=== PATIENT | male | born 1960 | race Caucasian/White ===

== ENCOUNTER 2020-02-03 01:11 | Observation (INO) ==
[2020-02-03] MEDS ORDERED: 0.9 % Sodium Chloride 1,000 ML IVC ONE (01:36)
[2020-02-03 01:54] LABS: Basophils % 0.3 %; Eosinophils % 0.4 %; Hematocrit 39.5 % (37.5-50.1); Hemoglobin 13.3 g/dL (12.9-16.9); Immature Granulocytes % 0.5 % (0-4); Lymphocytes # 1.2 K/mcL (0.6-4.6); Lymphocytes % 12.8 %; Mean Corpuscular HGB Conc 33.7 g/dL (31.6-35.5); Mean Corpuscular Hemoglobin 29.3 pg (28.0-33.3); Mean Platelet Volume 10.7 fL (9.4-12.4); Monocytes # 0.6 K/mcL (0.0-1.3); Monocytes % 6.6 %; Neutrophils # 7.3 K/mcL (1.6-8.9); Platelet Count 226 K/mcL (140-400); Red Blood Count 4.54 M/mcL (4.19-5.50); Red Cell Distribution Width 12.6 % (11.5-14.5); Segmented Neutrophils % 79.4 %; White Blood Count 9.2 K/mcL (4.3-11.1)
[2020-02-03 02:05] LABS: INR 1.1; Prothrombin Time 13.2 Seconds (9.4-12.1)
[2020-02-03 02:07] LABS: Activated Partial Thrombo Time 23.9 Seconds (26.0-36.0)
[2020-02-03 02:16] LABS: Alanine Aminotransferase 18 Units/L (7-52); Albumin 4.1 g/dL (3.5-5.7); Albumin/Globulin Ratio 1.5 (1.1-2.2); Alkaline Phosphatase 52 Units/L (34-104); Aspartate Amino Transferase 16 Units/L (13-39); BUN/Creatinine Ratio 11 (6-26); Bilirubin,Total 0.6 mg/dL (0.3-1.0); Blood Urea Nitrogen 10 mg/dL (6-20); Calcium 8.8 mg/dL (8.6-10.3); Carbon Dioxide 30 mEq/L (23-29); Chloride 101 mEq/L (98-107); Globulin 2.7 g/dL (2.4-3.5); Glucose 208 mg/dL (70-105); Osmolality,Calculated 295 (280-300); Potassium 3.1 mEq/L (3.5-5.1); Sodium 140 mEq/L (136-145); Total Protein 6.8 g/dL (6.4-8.9); eGFR For African Americans > 60 (> 60); eGFR For Non-African Americans > 60 (> 60)
[2020-02-03 02:17] LABS: Troponin I < 0.03 ng/mL (< 0.04)
[2020-02-03 03:16] LABS: Adenovirus Not Detected (Not Detect); Bordetella Pertussis Not Detected (Not Detect); Chlamydophila pneumoniae Not Detected (Not Detect); Coronavirus 229E Not Detected (Not Detect); Coronavirus HKU1 Not Detected (Not Detect); Coronavirus NL63 Not Detected (Not Detect); Coronavirus OC43 Not Detected (Not Detect); Human Metapneumovirus Not Detected (Not Detect); Human Rhinovirus/Enterovirus Not Detected (Not Detect); Influenza A Subtype 2009 H1 Not Detected (Not Detect); Influenza B Not Detected (Not Detect); Mycoplasma pneumoniae Not Detected (Not Detect); Parainfluenza Virus 1 Not Detected (Not Detect); Parainfluenza Virus 2 Not Detected (Not Detect); Parainfluenza Virus 3 Not Detected (Not Detect); Parainfluenza Virus 4 Not Detected (Not Detect); Respiratory Syncytial Virus Not Detected (Not Detect); SARS-CoV-2 Not Detected (Not Detect)
[2020-02-03] MEDS ORDERED: *HR* LORazepam 2 MG/ML VIAL IVP ONE (03:39)
[2020-02-03] MEDS ORDERED: levETIRAcetam 1,000 MG in 0.9 % Sodium Chloride 100 ML IVPB ONE (04:01)
[2020-02-03] MEDS ORDERED: Acetaminophen 325 MG TABLET PO PRN (04:25)
[2020-02-03] MEDS ORDERED: Ondansetron ODT 4 MG TAB.RAPDIS SL PRN (04:25)
[2020-02-03] MEDS ORDERED: Naloxone 0.4 MG/ML INJ IVP PRN (04:25)
[2020-02-03] MEDS ORDERED: *HR* LORazepam 1 MG TABLET PO PRN (04:29)
[2020-02-03] MEDS ORDERED: D5% in Water 1,000 ML IVC PRN (04:56)
[2020-02-03] MEDS ORDERED: *HR* Dextrose 50 % in Water (Vial) 50 ML VIAL IVP PRN (04:56)
[2020-02-03] MEDS ORDERED: Dextrose Gel 15 GM/37.5 ML TUBE PO PRN ×2 (04:56)
[2020-02-03] MEDS: 0.9 % Sodium Chloride 1,000 ML IVC SCH ×2 (04:58→17:27)
[2020-02-03 05:54] LABS: Creatine Kinase 547 Units/L (30-223); Ethanol < 10 mg/dL (Less than 10)
[2020-02-03] MEDS ORDERED: Ondansetron 4 MG/2 ML VIAL IVP PRN (06:00)
[2020-02-03 06:25] LABS: Bacteria,Urine Few per hpf (None-Few); Bilirubin,Urine Negative (Negative); Blood,Urine Trace (Negative); Clarity,Urine Clear (Clear); Color,Urine Colorless (Yellow); Glucose,Urine (UA) 100 mg/dL (Normal); Ketones,Urine Trace mg/dL (Negative); Leukocyte Esterase,Urine Negative (Negative); Mucus,Urine Few per lpf (None-Few); Nitrite,Urine Negative (Negative); PH,Urine 6.5 pH Units (5.0-8.0); Protein,Urine Trace mg/dL (Neg-Trace); Specific Gravity,Urine 1.012 (1.010-1.025); Urobilinogen,Urine Normal (Normal); WBC,Urine 0-3 per hpf (0-3)
[2020-02-03 06:26] LABS: Amphetamine Screen,Urine Negative ng/mL (Cutoff=1000); Barbiturate Screen,Urine Negative ng/mL (Cutoff=200)
[2020-02-03 06:27] LABS: Benzodiazepines Screen,Urine Negative ng/mL (Cutoff=300); Cannabinoid Screen,Urine Positive ng/mL (Cutoff = 50); Cocaine Screen,Urine Negative ng/mL (Cutoff= 300); Opiate Screen,Urine Negative ng/mL (Cutoff=300); Phencyclidine Screen,Urine Negative ng/mL (Cutoff=25)
[2020-02-03] MEDS ORDERED: Acetaminophen 650 MG RECTAL SUPP RC PRN (08:21)
[2020-02-03 08:40] LABS: Estimated Average Glucose 286 mg/dl; Hemoglobin A1C 11.6 %
[2020-02-03] MEDS: Insulin LISPRO 300 UNITS/3 ML VIAL SQ SCH ×3 (08:47→17:28)
[2020-02-03] MEDS: *HR* Metoprolol 5 MG/5 ML VIAL IVP SCH ×2 (08:48→17:27)
[2020-02-03] MEDS ORDERED: Acyclovir 700 MG in D5% in Water 250 ML IVPB SCH (09:00)
[2020-02-03 09:35] LABS: Folate 15.7 ng/mL (3.0-16.0)
[2020-02-03 13:27] LABS: Red Blood Cell,CSF < 2000 RBC/mcL
[2020-02-03 14:01] LABS: Glucose,CSF 108 mg/dL (40-70); Total Protein,CSF 63 mg/dL (15-45)
[2020-02-03 14:48] LABS: Appearance,CSF Clear (Clear)
[2020-02-03] MEDS ORDERED: Insulin LISPRO 300 UNITS/3 ML VIAL SQ SCH (21:00)
[2020-02-04] MEDS: *HR* Metoprolol 5 MG/5 ML VIAL IVP SCH ×2 (00:45→09:04)
[2020-02-04 06:25] LABS: Hematocrit 38.5 % (37.5-50.1); Hemoglobin 12.6 g/dL (12.9-16.9); Mean Corpuscular HGB Conc 32.7 g/dL (31.6-35.5); Mean Corpuscular Hemoglobin 29.1 pg (28.0-33.3); Mean Corpuscular Volume 88.9 fL (83.0-100.0); Mean Platelet Volume 10.4 fL (9.4-12.4); Platelet Count 199 K/mcL (140-400); Red Blood Count 4.33 M/mcL (4.19-5.50); Red Cell Distribution Width 12.7 % (11.5-14.5); White Blood Count 7.9 K/mcL (4.3-11.1)
[2020-02-04 07:52] VITALS: BP 139/78
[2020-02-04] MEDS: Insulin LISPRO 300 UNITS/3 ML VIAL SQ SCH (08:08)
[2020-02-04 08:34] LABS: BUN/Creatinine Ratio 13 (6-26); Blood Urea Nitrogen 13 mg/dL (6-20); Calcium 8.6 mg/dL (8.6-10.3); Carbon Dioxide 26 mEq/L (23-29); Chloride 106 mEq/L (98-107); Glucose 139 mg/dL (70-105); Osmolality,Calculated 296 (280-300); Phosphorous 3.7 mg/dL (2.7-4.5); Sodium 142 mEq/L (136-145); eGFR For African Americans > 60 (> 60); eGFR For Non-African Americans > 60 (> 60)
[2020-02-04] MEDS ORDERED: lisinopriL 20 MG TABLET PO SCH (09:00)
[2020-02-04] MEDS ORDERED: Acetaminophen 325 MG TABLET PO PRN (10:04)
[2020-02-05 16:32] LABS: HSV 2 Glycoprotein G IgG 0.87 IV (<=0.89)
[2020-02-06 13:08] LABS: HSV 2 Glycoprotein G IgG CSF 0.04 IV (<=0.89)
== END 2020-02-04 11:41 | disposition home or self-care (01) ==
LOC: CDU 01:11 → EMEROOARM 01:11 → SUATTDRO 04:08 → CDU 04:58 → 2ANU 05:18
PROVIDERS: ADMIT Internal Medicine; ATTEND Family Medicine

== ENCOUNTER 2020-04-25 12:19 | Observation (INO) ==
[2020-04-25] MEDS ORDERED: *HR* LORazepam 2 MG/ML VIAL ONE ×3 (12:42→15:20)
[2020-04-25] MEDS ORDERED: levETIRAcetam 1,000 MG in 0.9 % Sodium Chloride 100 ML IVPB ONE (12:46)
[2020-04-25] MEDS ORDERED: 0.9 % Sodium Chloride 1,000 ML IVC ONE (12:47)
[2020-04-25 13:02] LABS: Bilirubin,Urine Negative (Negative); Blood,Urine Small (Negative); Clarity,Urine Clear (Clear); Color,Urine Colorless (Yellow); Glucose,Urine (UA) >=1000 mg/dL (Normal); Ketones,Urine Trace mg/dL (Negative); Leukocyte Esterase,Urine Negative (Negative); Mucus,Urine Few per lpf (None-Few); Nitrite,Urine Negative (Negative); PH,Urine 5.5 pH Units (5.0-8.0); Protein,Urine 30 mg/dL (Neg-Trace); Specific Gravity,Urine 1.011 (1.010-1.025); Squamous Epithelial Cell,Urine Few per hpf (None-Few); Urobilinogen,Urine Normal (Normal); WBC,Urine 0-3 per hpf (0-3)
[2020-04-25 13:03] LABS: Basophils % 0.4 %; Eosinophils # 0.2 K/mcL (0.0-0.6); Eosinophils % 2.3 %; Hematocrit 43.2 % (37.5-50.1); Hemoglobin 14.8 g/dL (12.9-16.9); Lymphocytes # 2.3 K/mcL (0.6-4.6); Lymphocytes % 28.7 %; Mean Corpuscular HGB Conc 34.3 g/dL (31.6-35.5); Mean Corpuscular Hemoglobin 30.6 pg (28.0-33.3); Mean Corpuscular Volume 89.3 fL (83.0-100.0); Mean Platelet Volume 11.2 fL (9.4-12.4); Monocytes # 0.5 K/mcL (0.0-1.3); Monocytes % 5.7 %; Neutrophils # 4.9 K/mcL (1.6-8.9); Platelet Count 215 K/mcL (140-400); Red Blood Count 4.84 M/mcL (4.19-5.50); Segmented Neutrophils % 61.9 %; White Blood Count 7.9 K/mcL (4.3-11.1)
[2020-04-25] MEDS ORDERED: *HR* LORazepam 2 MG/ML VIAL IVP ONE ×2 (13:17)
[2020-04-25 13:33] LABS: Amphetamine Screen,Urine Negative ng/mL (Cutoff=1000); Barbiturate Screen,Urine Negative ng/mL (Cutoff=200); Benzodiazepines Screen,Urine Negative ng/mL (Cutoff=200); Cannabinoid Screen,Urine Positive ng/mL (Cutoff = 50); Cocaine Screen,Urine Negative ng/mL (Cutoff= 300); Opiate Screen,Urine Negative ng/mL (Cutoff=300); Phencyclidine Screen,Urine Negative ng/mL (Cutoff=25)
[2020-04-25 13:36] LABS: Alanine Aminotransferase 19 Units/L (7-52); Albumin 4.3 g/dL (3.5-5.7); Albumin/Globulin Ratio 1.5 (1.1-2.2); Alkaline Phosphatase 68 Units/L (34-104); Aspartate Amino Transferase 13 Units/L (13-39); BUN/Creatinine Ratio 9 (6-26); Bilirubin,Direct 0.1 mg/dL (0.0-0.2); Bilirubin,Indirect 0.2 mg/dL (0.0-1.0); Bilirubin,Total 0.3 mg/dL (0.3-1.0); Blood Urea Nitrogen 10 mg/dL (6-20); Calcium 9.5 mg/dL (8.6-10.3); Carbon Dioxide 19 mEq/L (23-29); Chloride 97 mEq/L (98-107); Ethanol < 10 mg/dL (Less than 10); Globulin 2.8 g/dL (2.4-3.5); Glucose 353 mg/dL (70-105); Osmolality,Calculated 295 (280-300); Potassium 3.5 mEq/L (3.5-5.1); Sodium 136 mEq/L (136-145); Thyroid Stimulating Hormone 7.103 mcIU/mL (0.340-5.600); Total Protein 7.1 g/dL (6.4-8.9); Troponin I < 0.03 ng/mL (< 0.04); eGFR For African Americans > 60 (> 60); eGFR For Non-African Americans > 60 (> 60)
[2020-04-25 14:22] LABS: VBG HCO3 21 mEq/L (21-27); VBG PCO2 45 mmHg (41-51); VBG PH 7.28 pH Units (7.32-7.42); VBG PO2 179 mmHg (25-50)
[2020-04-25 14:32] LABS: Triiodothyronine (T3) Free 2.96 pg/mL (2.50-3.90)
[2020-04-25] MEDS ORDERED: *HR* LORazepam 2 MG/ML VIAL IVP PRN (15:07)
[2020-04-25 15:08] LABS: Adenovirus Not Detected (Not Detect); Coronavirus 229E Not Detected (Not Detect); Coronavirus HKU1 Not Detected (Not Detect); Coronavirus NL63 Not Detected (Not Detect); Coronavirus OC43 Not Detected (Not Detect); Human Metapneumovirus Not Detected (Not Detect); Human Rhinovirus/Enterovirus Not Detected (Not Detect); SARS-CoV-2 Not Detected (Not Detect)
[2020-04-25 15:09] LABS: Bordetella Pertussis Not Detected (Not Detect); Chlamydophila pneumoniae Not Detected (Not Detect); Influenza A Subtype 2009 H1 Not Detected (Not Detect); Influenza B Not Detected (Not Detect); Mycoplasma pneumoniae Not Detected (Not Detect); Parainfluenza Virus 1 Not Detected (Not Detect); Parainfluenza Virus 2 Not Detected (Not Detect); Parainfluenza Virus 3 Not Detected (Not Detect); Parainfluenza Virus 4 Not Detected (Not Detect); Respiratory Syncytial Virus Not Detected (Not Detect)
[2020-04-25] MEDS ORDERED: *HR* LORazepam 2 MG/ML VIAL IVP STA (15:24)
[2020-04-25] MEDS ORDERED: Thiamine (B-1) 100 MG in 0.9 % Sodium Chloride 50 ML IVPB STA (15:24)
[2020-04-25 15:42] LABS: ABG Base Excess 1 mEq/L (-2 to 3); ABG HCO3 27 mEq/L (21-27); ABG Oxygen Saturation 91 % (95-98); ABG PCO2 46 mmHg (35-45); ABG PH 7.38 pH Units (7.32-7.45); ABG PO2 62 mmHg (85-104); ABG TCO2 29 mEq/L (20-26)
[2020-04-25] MEDS: Dexmedetomidine HCl 400 MCG/100 ML MLS IVC SCH ×2 (15:45→22:46)
[2020-04-25 17:27] LABS: Acetaminophen < 10 mcg/mL (10-20); Creatine Kinase 266 Units/L (30-223); Salicylate < 2.5 mg/dL (15.0-30.0)
[2020-04-25] MEDS ORDERED: D5% in Water 1,000 ML IVC PRN (19:27)
[2020-04-25] MEDS ORDERED: *HR* Dextrose 50 % in Water (Vial) 50 ML VIAL IVP PRN (19:27)
[2020-04-25] MEDS ORDERED: Dextrose Gel 15 GM/37.5 ML TUBE PO PRN ×2 (19:27)
[2020-04-25] MEDS ORDERED: 0.9 % Sodium Chloride 1,000 ML IVC SCH (19:30)
[2020-04-25] MEDS ORDERED: Acetaminophen 325 MG TABLET PO PRN (19:35)
[2020-04-25] MEDS ORDERED: Naloxone 0.4 MG/ML INJ IVP PRN (19:35)
[2020-04-25] MEDS ORDERED: Ondansetron 4 MG/2 ML VIAL IVP PRN (19:35)
[2020-04-25 20:04] LABS: Estimated Average Glucose 214 mg/dl; Hemoglobin A1C 9.1 %
[2020-04-25] MEDS: 0.9 % Sodium Chloride 1,000 ML IVC SCH (20:52)
[2020-04-25] MEDS: Sennosides/Docusate Sodium TABLET PO SCH (20:52)
[2020-04-25] MEDS: Ampicillin/Sulbactam 1,500 MG in 0.9 % Sodium Chloride Mini Bag 100 ML IVPB SCH (21:10)
[2020-04-25] MEDS: D5 IVPB SCH (21:45)
[2020-04-25] MEDS: ACYCLOVIR IVPB SCH (21:45)
[2020-04-25] MEDS: WATER IVPB SCH (21:45)
[2020-04-25 22:00] LABS: HIV-1&2 Antibody & p24 Ag Nonreactive (Nonreactive)
[2020-04-25] MEDS ORDERED: *HR* Heparin 5,000 UNIT/ML VIAL IVP ONE (23:27)
[2020-04-25] MEDS ORDERED: *HR* Heparin 5,000 UNIT/ML VIAL IVP PRN ×2 (23:27)
[2020-04-25] MEDS ORDERED: Aspirin 325 MG TABLET PO ONE (23:28)
[2020-04-25] MEDS ORDERED: Heparin 25,000UNIT/250ML 1/2NS 25,000 UNIT/250 ML IV.SOLN IVC SCH (23:30)
[2020-04-26] MEDS ORDERED: Perflutren Lipid Microsphere 1.3 ML in 0.9 % Sodium Chloride 8.7 ML IVP PRN (00:23)
[2020-04-26 00:25] LABS: Hematocrit 37.6 % (37.5-50.1); Mean Corpuscular HGB Conc 34.8 g/dL (31.6-35.5); Mean Corpuscular Hemoglobin 29.9 pg (28.0-33.3); Mean Corpuscular Volume 85.8 fL (83.0-100.0); Mean Platelet Volume 11.1 fL (9.4-12.4); Platelet Count 199 K/mcL (140-400); Red Blood Count 4.38 M/mcL (4.19-5.50); Red Cell Distribution Width 12.2 % (11.5-14.5)
[2020-04-26 00:28] LABS: Hemoglobin 13.1 g/dL (12.9-16.9)
[2020-04-26 00:44] LABS: Heparin anti-factor XA UFH 0.29 IU/mL (0.30-0.70)
[2020-04-26 00:45] LABS: INR 1.1
[2020-04-26] MEDS: Ampicillin/Sulbactam 1,500 MG in 0.9 % Sodium Chloride Mini Bag 100 ML IVPB SCH ×3 (01:46→12:13)
[2020-04-26 01:57] LABS: Basophils % 0.3 %; Eosinophils # 0.2 K/mcL (0.0-0.6); Eosinophils % 1.7 %; Hematocrit 38.3 % (37.5-50.1); Hemoglobin 13.3 g/dL (12.9-16.9); Immature Granulocytes % 0.3 % (0-4); Lymphocytes # 1.8 K/mcL (0.6-4.6); Lymphocytes % 17.1 %; Mean Corpuscular HGB Conc 34.7 g/dL (31.6-35.5); Mean Corpuscular Hemoglobin 29.8 pg (28.0-33.3); Mean Corpuscular Volume 85.9 fL (83.0-100.0); Mean Platelet Volume 11.2 fL (9.4-12.4); Monocytes # 0.8 K/mcL (0.0-1.3); Monocytes % 7.2 %; Neutrophils # 7.8 K/mcL (1.6-8.9); Platelet Count 192 K/mcL (140-400); Red Blood Count 4.46 M/mcL (4.19-5.50); Red Cell Distribution Width 12.2 % (11.5-14.5); Segmented Neutrophils % 73.4 %; White Blood Count 10.6 K/mcL (4.3-11.1)
[2020-04-26 02:15] LABS: Alanine Aminotransferase 17 Units/L (7-52); Albumin 3.9 g/dL (3.5-5.7); Albumin/Globulin Ratio 1.6 (1.1-2.2); Alkaline Phosphatase 62 Units/L (34-104); Aspartate Amino Transferase 19 Units/L (13-39); BUN/Creatinine Ratio 8 (6-26); Bilirubin,Total 0.7 mg/dL (0.3-1.0); Blood Urea Nitrogen 7 mg/dL (6-20); Carbon Dioxide 27 mEq/L (23-29); Chloride 104 mEq/L (98-107); Globulin 2.5 g/dL (2.4-3.5); Glucose 255 mg/dL (70-105); Magnesium 1.9 mg/dL (1.6-2.6); Osmolality,Calculated 297 (280-300); Phosphorous 3.1 mg/dL (2.7-4.5); Potassium 3.3 mEq/L (3.5-5.1); Sodium 140 mEq/L (136-145); Total Protein 6.4 g/dL (6.4-8.9); eGFR For African Americans > 60 (> 60); eGFR For Non-African Americans > 60 (> 60)
[2020-04-26 02:46] LABS: Folate 12.2 ng/mL (3.0-16.0)
[2020-04-26] MEDS: ACYCLOVIR IVPB SCH ×2 (04:14→12:12)
[2020-04-26] MEDS: D5 IVPB SCH ×2 (04:14→12:12)
[2020-04-26] MEDS: WATER IVPB SCH ×2 (04:14→12:12)
[2020-04-26] MEDS: Sennosides/Docusate Sodium TABLET PO SCH ×2 (08:32→21:12)
[2020-04-26] MEDS: Aspirin 81 MG TAB.CHEW PO SCH (08:33)
[2020-04-26] MEDS: 0.9 % Sodium Chloride 1,000 ML IVC SCH (08:38)
[2020-04-26] MEDS ORDERED: Valproic Acid INJ 1,000 MG in 0.9 % Sodium Chloride 100 ML IVPB ONE (09:00)
[2020-04-26] MEDS ORDERED: Gadolinium Contrast Agent (WT Based) IV PRN (09:06)
[2020-04-26] MEDS: Divalproex (12 HR) 500 MG TABLET PO SCH (21:14)
[2020-04-27] MEDS: Divalproex (12 HR) 500 MG TABLET PO SCH ×2 (08:30→20:37)
[2020-04-27] MEDS: Aspirin 81 MG TAB.CHEW PO SCH (08:30)
[2020-04-27] MEDS: Sennosides/Docusate Sodium TABLET PO SCH ×2 (08:30→20:37)
[2020-04-27] MEDS: Dexmedetomidine HCl 400 MCG/100 ML MLS IVC SCH (16:20)
[2020-04-27] MEDS ORDERED: Insulin LISPRO 300 UNITS/3 ML VIAL SUBQ SCH (21:00)
[2020-04-28 06:37] VITALS: BP 148/97
[2020-04-28] MEDS ORDERED: Insulin LISPRO 300 UNITS/3 ML VIAL SUBQ SCH (07:30)
[2020-04-28] MEDS: Divalproex (12 HR) 500 MG TABLET PO SCH (07:48)
[2020-04-28] MEDS: Aspirin 81 MG TAB.CHEW PO SCH (07:48)
[2020-04-28] MEDS: Sennosides/Docusate Sodium TABLET PO SCH (07:48)
[2020-04-28 13:27] LABS: VBG HCO3 27 mEq/L (21-27); VBG PCO2 44 mmHg (41-51); VBG PH 7.39 pH Units (7.32-7.42); VBG PO2 92 mmHg (25-50)
== END 2020-04-28 14:50 | disposition home or self-care (01) ==
LOC: 2NNU 12:19 → EMEROOARM 12:19 → SUATTDRO 16:24 → 2NNU 17:54 → 3BNU 04-27 15:51
PROVIDERS: ADMIT Internal Medicine; ATTEND Internal Medicine